=== PATIENT | female | born 1970 | race Caucasian/White ===

== ENCOUNTER 2018-01-09 11:06 | Emergency (ER) | payer OTHER ==
--- NOTE | 2018-01-09 11:49 | Emergency Department Record ---
History of Present Illness - General Chief Complaint: Arrythmia/Palpitations Stated Complaint: HEART RACING Time Seen by Provider: 01/09/18 11:36 Source: Patient Mode of Arrival: Ambulatory Limitations: No limitations - History of Present Illness Initial Comments: The patient is here due to a one hour hx of palpitations, feeling like her heart is racing, and SOB with anxiety. She did have some mild chest pressure but that is gone now. The patient was just sitting working on her computer when this occurred. She denies any recent illness, cough, cold, AP, back pain or fevers. She states she has no hx of similar issues or problems. MD Complaint: "Heart racing", Palpitations Onset/Timin -: Hour(s) Context: Occurred during rest Associated Symptoms: Shortness of breath - Related Data Allergies Allergy/AdvReac Type Severity Reaction Status Date / Time No Known Drug Allergies Allergy Verified 01/09/18 11:29 Travel Screening - Travel/Exposure Within Last 30 Days Have you traveled within the last 30 days?: No - Travel/Exposure Within Last Year Have you traveled outside the [place] in the last year?: Yes Location Detail:: [facility] - Travel Symptoms Symptom Screening: None Review of Systems Constitutional: Denies: Chills, Fever Eyes: Denies: Eye discharge ENT: Denies: Congestion Respiratory: Denies: Cough, Dyspnea Cardiovascular: Reports: Chest pain, Palpitations Endocrine: Denies: Fatigue Gastrointestinal: Denies: Nausea Genitourinary: Denies: Dysuria Musculoskeletal: Denies: Arthralgia Past Medical History - SOCIAL HISTORY Smoking Status: Never smoker Alcohol Use: Occasional Drug Use: None - RESPIRATORY Hx Respiratory Disorders: No - CARDIOVASCULAR Hx Cardio Disorders: No - NEURO Hx Neuro Disorders: No - GI Hx GI Disorders: No - Hx Genitourinary Disorders: Yes Comment:: endometriosis - ENDOCRINE Hx Endocrine Disorders: No - MUSCULOSKELETAL Hx Musculoskeletal Disorders: Yes Comment:: perthes disease - PSYCH Hx Psych Problems: No - HEMATOLOGY/ONCOLOGY Hx Hematology/Oncology Disorders: No Hx Chemotherapy: No Hx Radiation Therapy: No Family Medical History Any Significant Family History?: No Physical Exam - General General Appearance: Alert, Oriented x3, Cooperative, No acute distress - Head Head exam: Atraumatic, Normocephalic, Normal inspection - Eye Eye exam: Normal appearance, PERRL - ENT Throat exam: Normal inspection. negative: Tonsillar erythema, Tonsillar exudate - Neck Neck exam: Normal inspection, Full ROM. negative: Tenderness - Respiratory Respiratory exam: Normal lung sounds bilaterally. negative: Respiratory distress - Cardiovascular Cardiovascular Exam: Regular rate, Normal rhythm, Normal heart sounds - GI/Abdominal GI/Abdominal exam: Soft, Normal bowel sounds. negative: Tenderness - Extremities Extremities exam: Normal inspection, Full ROM, Normal capillary refill. negative: Tenderness - Neurological Neurological exam: Alert, Normal gait. negative: Abnormal gait, Motor sensory deficit Course Vital Signs 01/09/18 11:12 Temperature 97.4 F L Pulse Rate 90 Respiratory 20 Rate Blood Pressure 136/85 Pulse Ox 100 - Reevaluation(s) Reevaluation #1: The patient is doing a lot better at this time. She is resting comfortably and her symptoms have resolved. Her vital signs are normal with a normal HR and RA biox of 100%. Due to the positive D-dimer we did order a chest CT and are waiting on the results. 01/09/18 13:30 Reevaluation #2: The patient is doing a lot better at this time. The chest CT was neg for PE but due to the symptoms I did recommend a short stay admission. The patient is refusing the plan to admit. I did explain to her that the risks of leaving are that she could leave and have an arrythmia, have an AK or CVA, become disable and even could . Presently the patient has proper decision making capacity and accepts the risks of leaving AMA. She is to see her family doctor next week and is to return to the ER if her symptoms return. 01/09/18 14:49 Medical Decision Making - Data Complexity MDM Data: Labs Ordered and/or Reviewed, X-Ray Ordered and/or Reviewed, EKG Ordered and/or Reviewed - Lab Data Result diagrams: 01/09/18 11:25 01/09/18 11:25 Lab Results 01/09/18 Range/Units 11:22 POC Glucose 137 H (70-110) mg/dL - EKG Data -: EKG Interpreted by Me EKG: No Acute Changes, Normal EKG - Radiology Data Radiology results: Report reviewed (CXR: Neg Chest CT: Neg for PE.) Disposition Disposition: Discharge Clinical Impression: Palpitations Disposition: Against Medical Advice Condition: (2) Stable Instructions: Heart Palpitations (ED) Additional Instructions: Please continue your regular medicines and return to the ER for any problems or recurrent symptoms. Forms: Patient Portal Access Time of Disposition: 14:52 Quality - Quality Measures Quality Measures: N/A - Blood Pressure Screening View Details: Yes Does Patient Have Any of the Following: No Blood Pressure Classification: Pre-Hypertensive BP Reading Systolic Measurement: 136 Diastolic Measurement: 85 Screening for High Blood Pressure: < Pre-Hypertensive BP, F/U Documented > [ [id number]] Pre-Hypertensive Follow-up Interventions: Referral to alternative/primary care provider.
[2018-01-09 11:58] LABS: BASO % 0.3 % (0-6); EOS % 3.2 % (0-6); GRAN % 59.8 % (47-80); HEMATOCRIT 40.7 % (35.0-47.0); LYMPH % 26.7 % (16-45); MEAN CELL VOLUME 97.6 fl (81-97); MEAN CORPUSCULAR HEMOGLOBIN 33.6 pg (27-33); MEAN CORPUSCULAR HGB CONC 34.4 g/dl (32-36); MEAN PLATELET VOLUME 11.3 fl (7.4-10.4); PLATELET COUNT 259 K/uL (130-400); RED BLOOD COUNT 4.17 M/uL (3.80-5.40); RED CELL DISTRIBUTION WIDTH 11.9 % (11.5-14.5); WHITE BLOOD COUNT W/O DIFF 5.9 K/uL (4.2-12.2)
[2018-01-09 12:12] LABS: BLOOD UREA NITROGEN 12 mg/dL (6-20); CREATININE 0.6 mg/dL (0.5-0.9); EST GLOMERULAR FILTRATION RATE > 60 mL/min
[2018-01-09 12:13] LABS: TOTAL PROTEIN 7.2 g/dL (6.6-8.7)
[2018-01-09 12:15] LABS: GLUCOSE,RANDOM 164 mg/dL (74-109)
[2018-01-09 12:17] LABS: ALB/GLOB RATIO 1.7 (1.1-1.8); ALBUMIN 4.5 g/dL (4.0-5.0); ALKALINE PHOSPHATASE 60 U/L (35-104); ALT/SGPT 12 U/L (<33); AST/SGOT 17 U/L (10.0-35.0); CREATINE PHOSPHOKINASE 53 U/L (26-192)
[2018-01-09 12:19] LABS: CKMB < 1.0 ng/mL (<3.77)
[2018-01-09] MEDS ORDERED: LORAZEPAM 2 MG/ML VIAL IV ONE (12:19)
[2018-01-09] MEDS ORDERED: 0.9 % SODIUM CHLORIDE 1,000 ML BAG IV ONE (12:19)
[2018-01-09 12:21] LABS: INR 0.9; PARTIAL THROMBOPLASTIN TIME 29.6 SECONDS (24.5-39.1); PROTHROMBIN TIME (PATIENT) 10.2 SECONDS (9.5-12.1)
[2018-01-09 12:29] LABS: THYROID STIMULATING HORMONE 1.41 uIU/mL (0.270-4.20)
[2018-01-09 14:39] LABS: CKMB < 1.0 ng/mL (<3.77)
--- NOTE | 2018-01-10 08:50 | RADIOLOGY REPORT ---
EXAM: CHEST 2 VIEWS HISTORY: COUGH. TECHNIQUE: Frontal and lateral views of the chest. COMPARISON: None. FINDINGS: Heart size is normal. What are likely splenic granulomata partially seen in the left upper quadrant and probable calcified granuloma in the right lung base versus hepatic granuloma. Lungs are otherwise clear. No pneumothorax. Postsurgical change, right shoulder. IMPRESSION: NO ACUTE CARDIOPULMONARY PROCESS. JOB NUMBER: [id number] MTDD
--- NOTE | 2018-01-10 08:53 | CT ANGIOGRAM REPORT ---
EXAM: CT ANGIOGRAM CHEST CTA w contrast HISTORY: WEAKNESS. TECHNIQUE: CTA chest performed using pulmonary embolus protocol following IV administration of 85 mL Omnipaque-350 contrast. Axial images were obtained with coronal and sagittal MIP reconstructions. COMPARISON: None. FINDINGS: The mediastinal vasculature enhances normally. There is no intraluminal filling defect to suggest pulmonary embolus. Negative for thoracic aortic aneurysm or dissection. No mediastinal or hilar adenopathy. Limited evaluation of the upper abdomen shows hepatic granulomata. Osseous structures are grossly intact. There is no pneumothorax. The visualized airways are patent. The lungs are clear. IMPRESSION: NEGATIVE FOR AN ACUTE INTRATHORACIC PROCESS. JOB NUMBER: [id number] MTDD
== END 2018-01-09 15:05 | disposition left against medical advice (07) ==
LOC: ER 11:06
DX: R00.2 Palpitations (principal); R07.89 Other chest pain; R06.02 Shortness of breath; R79.89 Other specified abnormal findings of blood chemistry; R53.1 Weakness; R05 Cough
CPT/HCPCS: 99284 ×2; 96374; 82550; 85025; 85730; 85610; 82553; 80048; 80053; 36416; 82948; 84443; 84484; 85379; 71046; 71275; 93005; 93010; Q9967; J2060; J7030